=== PATIENT | male | born 1990 | race Caucasian/White ===

== ENCOUNTER 2025-06-17 02:50 | Observation (INO) | payer SELFPAY ==
[2025-06-17 03:11] VITALS: BP 116/53; PULSE 79; RESP 20; TEMP 36.7; O2SAT 97; BMI 29.8
--- NOTE | 2025-06-17 07:08 | ED.WOUNDLAC ---
HPI - Wound/Laceration General Chief Complaint: Wound/Laceration Stated Complaint: R Hand Thumb Laceration Time Seen by Provider: 06/17/25 04:33 Source: patient, RN notes reviewed and old records reviewed Mode of arrival: Ambulatory Limitations: no limitations History of Present Illness HPI narrative: 34-year-old male no reported medical issues presents with complaint of laceration to the posterior or dorsal side of his right thumb. Patient states he can flex it he can extend but not quite fully. He has a minimal pain. He states it has happened last night. Patient states he was speech cocking a turkey. When the knife accidentally slipped and cut him. He did go ahead and bright in the turkey but states he did not use his injured hand. He states no daily medications, denies any prior surgeries or injuries to that hand. No known drug allergies. Former smoker, occasional alcohol, denies any IV drugs. Patient does not believe his tetanus is up-to-date. Related Data Home Medications ?Medication ?Instructions ?Recorded ?Confirmed No Known Home Medications 05/27/25 05/27/25 Allergies Allergy/AdvReac Type Severity Reaction Status Date / Time No Known Drug Allergies Allergy Verified 06/17/25 03:11 Review of Systems Review of Systems ROS Unobtainable: All systems reviewed & are unremarkable except as noted in HPI and below Patient History Social History Smoking Status: Former smoker alcohol intake: current Smoking Status: Former smoker tobacco type: cigarettes and vaping Alcohol type: hard liquor Exam Narrative Exam Narrative: GENERAL: Alert and oriented x three, male in mild distress HEENT: Head normocephalic, atraumatic, EOMI, pupils reactive, face symmetric, moist mucous membranes NECK: Supple, full range of motion CARDIOVASCULAR: Regular rate and rhythm without murmurs, rubs or gallops. RESPIRATORY: Breath sounds equal bilaterally, no wheezes rales or rhonchi. ABDOMEN: Soft, nontender. Normoactive bowel sounds all 4 quadrants. No guarding or rebound, rigidity, no mass EXTREMITIES: 34-year-old male with a 1.5 cm and half laceration over the dorsum of his right thumb, laceration is through and through, tendon is visualized appears to be lacerated all the way through. Do not appear to have any other bony injury. There was no active bleeding, no clubbing or edema. Neurovascularly intact. Patient has a 2+ radial pulse. Cap refills less than 2 seconds patient has sensation intact. NEUROLOGICAL: Cranial nerves II through XII grossly intact. Moving all extremities SKIN: Warm, dry, no petechiae, no rashes or lesions. Initial Vital Signs Initial Vital Signs: Vital Signs Temperature 98.0 F 06/17/25 03:11 Pulse Rate 79 06/17/25 03:11 Respiratory Rate 20 06/17/25 03:11 Blood Pressure 116/53 L 06/17/25 03:11 Pulse Oximetry 97 06/17/25 03:11 Oxygen Delivery Method Room Air 06/17/25 03:11 Course Orders Ordered: Acetaminophen (Acetaminophen 325 Mg Tablet) 975 mg PO NOW ONE Stop: 06/19/25 06:01 Sodium Chloride (Normal Saline 0.9%) 1,000 mls @ 100 mls/hr IV CONT CONNIE Last Infusion: 06/17/25 14:21 Dose: Infused Documented By: Admin: 06/17/25 09:42 Dose: 100 mls/hr Documented By: JEFF Lactated Ringer's (Lactated Ringers) 1,000 mls @ 42 mls/hr IV CONT CONNIE Discontinued Medications Diphtheria/Tetanus/Acell Pertussis (Tet,Diph,Pertuss(Acell),Vac/Pf 0.5 Ml Syringe) 0.5 ml IM .ONCE ONE Stop: 06/17/25 08:06 Last Admin: 06/17/25 08:08 Dose: 0.5 ml Documented By: JEFF(2) Cefazolin Sodium/Dextrose (Ancef) 100 mls @ 200 mls/hr IV NOW ONE Stop: 06/17/25 09:06 Last Infusion: 06/17/25 10:15 Dose: Infused Documented By: Admin: 06/17/25 09:41 Dose: 200 mls/hr Documented By: JEFF Lidocaine HCl (Lidocaine 2% Inj Sdv 5ml) 5 ml INJ INTRA-OP ONE Stop: 06/17/25 07:54 Last Admin: 06/17/25 08:07 Dose: 5 ml Documented By: JEFF(2) Vital Signs Vital signs: Vital Signs - 8 hr 06/17/25 15:46 06/17/25 16:32 Temperature 97.1 F L Pulse Rate 77 69 Respiratory Rate 18 16 Blood Pressure 138/92 H 118/74 Pulse Oximetry 96 97 Oxygen Delivery Method Room Air Room Air MDM - Wound/Laceration MDM Narrative Medical decision making narrative: 34-year-old male with laceration to the dorsum of the right thumb appears that he did lacerate extensor tendon. I spoke with Dr. Villafuerte, orthopedic surgery who will come and evaluate the patient. Dr. Villafuerte, orthopedic surgery: Plan for OR. Patient had tony willingham shortly prior to evaluation in OR. NPO. Discharge Plan Departure Patient Disposition: Admitted to Surgery Clinical Impression: Laceration of extensor tendon of right thumb at hand level Prescriptions: No Action No Known Home Medications
[2025-06-17] MEDS: LIDOCAINE 2% INJ SDV 5ML 5 ML INJ (08:07)
[2025-06-17] MEDS: TET,DIPH,PERTUSS(ACELL),VAC/PF 0.5 ML SYRINGE IM (08:08)
--- NOTE | 2025-06-17 09:07 | PM.CN.IH.1 ---
History of Present Illness Consult details Date Patient Seen: 06/17/25 Time Patient Seen: 09:07 Chief complaint: R Hand Thumb Laceration Reason for consult: Right thumb laceration with tendon involvement Requesting provider: Sherley Maguire Narrative: Agusto is a 34-year-old right-hand dominant male who presents to the emergency room earlier today after he sustained a laceration to his right thumb last evening while preparing a turkey. He had a knife in his hand and slipped, cutting his dorsal right thumb over the proximal phalanx. He is having some difficulty with fully extending the thumb. He has no other complaints. He has no significant past medical history. He works for the [employer]. Meds Home Medications and Allergies Home Medications ?Medication ?Instructions ?Recorded ?Confirmed ?Type No Known Home Medications 05/27/25 05/27/25 History Allergies Allergy/AdvReac Type Severity Reaction Status Date / Time No Known Drug Allergies Allergy Verified 06/17/25 03:11 Exam Vital Signs (past 8 hours): - 06/17/25 03:11 Temperature 98.0 F Pulse Rate 79 Respiratory Rate 20 Blood Pressure 116/53 L Pulse Oximetry 97 Oxygen Delivery Method Room Air Oxygen Delivery Method Room Air Narrative Exam Narrative: Right hand demonstrates a 1.5 cm laceration over the dorsum of the thumb proximal phalanx in an oblique direction. The extensor tendon is visualized within the wound and shows a near complete to complete clean laceration through the tendon. He has intact flexion of the thumb. Distal sensation is intact throughout. Capillary refill is less than 2 seconds. PFSH Tobacco & Substance Use Smoking Status: Former smoker alcohol intake: current Assessment & Plan Assessment & Plan narrative: Right thumb laceration with extensor tendon involvement. Diagnosis and treatment options were discussed with the patient. Given the extent of the injury to the extensor tendon, primary repair is recommended. To best assess the extent of the laceration as well as adequately exposed of the tendon for repair, I feel that this would be best done in the operating room. Benefits of surgery were discussed today. These include optimize christian of normal thumb function. Risks of surgery were also discussed. These included, but were not limited to: Bleeding, infection, drug reactions, neurovascular injury, incomplete pain relief, stiffness, and . Patient voiced understanding and acceptance of the risks. Patient had some sips of and iced coffee from [employer], therefore we will need to wait 8 hours to allow gastric emptying before proceeding with surgery. Patient was informed of this he does understanding. We will proceed to the operating room this afternoon once cleared. Time-Based Coding :: [TOTAL MINUTES] spent with patient and on the chart (including review of chart, obtaining history, exam, reviewing outside data, placing orders, documenting exam and treatment plan, and counseling patient) on [DATE]. PROFEE Charge Codes Inpatient or Observation consultation: [id number]
[2025-06-17] MEDS: SODIUM CHLORIDE 0.9% 1,000 ML 100 ML IV (09:42)
--- NOTE | 2025-06-17 10:04 | PC.NURSE ---
Pt able to bend right thumb but his movment is decreased.
[2025-06-17 15:46] VITALS: BP 138/92; PULSE 77; RESP 18; O2SAT 96
[2025-06-17 16:32] VITALS: BP 118/74; PULSE 69; RESP 16; TEMP 36.2; O2SAT 97
[2025-06-17] MEDS: LACTATED RINGERS 1,000 ML 42 ML IV ×2 (16:38→17:02)
--- NOTE | 2025-06-17 19:05 | SUR.OPER ---
Supine on padded OR bed, head on pillow, arms secured on padded arm boards at <90 degrees abduction, legs uncrossed, safety belt at thigh, tape over blanket over lower legs. right arm on arm table, prepped into field
[2025-06-17 19:56] VITALS: BP 141/69; PULSE 79; RESP 16; TEMP 36.9; O2SAT 98
--- NOTE | 2025-06-17 20:00 | PM.OP.1 ---
Operative Date/Time/Diagnoses Date of procedure: 06/17/25 Time of procedure: 20:00 Pre-op diagnosis: Right thumb extensor tendon laceration Post-op diagnosis: same Procedure & Clinicians Procedure: Right thumb wound exploration with primary repair of extensor pollicis longus (CPT - 00568) and primary closure of laceration. Same procedure(s) as scheduled: Yes Indications: Acute laceration to right thumb extensor pollicis longus Surgeon: Nehemias Villafuerte Assisted?: No Anesthesia Type: General Operative Notes Findings: Complete laceration of extensor pollicis longus in zone 2 Closure Type: primary Specimen(s): none sent Applied: other (Thumb spica splint) Estimated Blood Loss (mL): 1 Blood products transfused: none Tourniquet time (min): 38 Procedure in detail: Patient was diagnosed with acute laceration of the right thumb with involvement of the extensor tendon. Management options were discussed and it was recommended that we proceed to the operating room for formal exploration with primary repair of the extensor tendon and closure. He agreed with this plan. Patient was taken to the holding area and the surgical site was marked. Consent was obtained. He was then taken to the operating room and placed on the operating table in supine position. General anesthesia was induced and the airway was secured with a laryngeal mask airway. A nonsterile tourniquet was placed around the proximal right arm. The right arm was then prepped out with Betadine scrub and paint and draped out in usual sterile fashion. An elastic bandage was used to exsanguinate the arm and the tourniquet was inflated to 200 mm Hg. The wound over the dorsal aspect of the thumb was then inspected and the extensor pollicis longus tendon was found to be completely transected in an oblique fashion with retraction of the proximal end. The laceration was then extended along the radial dorsal aspect of the thumb to create a flap and allow for retrieval of the proximal tendon. The tendon was then identified and mobilized. The wound was irrigated. The tendon ends were then approximated and repaired 1st by using a 4-0 FiberWire running stitch and then reinforced with an epitendinous repair using a 4-0 Prolene suture in a Silfverskiold suture pattern. This provided good approximation of the tendon and stable fixation of the repair. The wound was again irrigated and then the surrounding skin was anesthetized with 0.25% Marcaine without epinephrine. The skin was then closed with 3-0 nylon sutures. There was also a small laceration noticed on the volar aspect of the thumb that had a small full-thickness component that was also reapproximated with a single 3-0 nylon suture. The wounds were then dressed with Xeroform, gauze sponges, and a plaster thumb spica splint applied. The tourniquet was deflated at 38 minutes. General anesthesia was reversed successfully without complication the patient was taken to the recovery room in stable condition. Complications: none Post-operative Condition: stable Disposition: same day surgery Plan for aftercare: Patient will be discharged home tonight with a combination Tylenol and naproxen for pain control. I would like him to follow up with the orthopedic clinic in 7-10 days. A note was also provided today for work keeping him light duty with no use of the right hand for lifting, pushing, pulling, or gripping.
[2025-06-17] MEDS: ONDANSETRON 4 MG/2 ML INJ IV (20:06)
[2025-06-17 20:10] VITALS: BP 129/64; PULSE 70; RESP 16; O2SAT 98
[2025-06-17 20:34] VITALS: BP 136/72; PULSE 68; RESP 26; O2SAT 98
== END 2025-06-17 20:36 | disposition home or self-care (01) ==
LOC: ED 09:52 → AC 16:53
PROVIDERS: Orthopaedic Surgery; Admitting Provider Surgery; Emergency Provider Emergency Medicine; Referring Provider Emergency Medicine; Visit Provider Surgery
PROC: (CPT 26410; principal; 2025-06-17 16:30)
DX: S66.221A Laceration of extensor muscle, fascia and tendon of right thumb at wrist and hand level, initial encounter (principal); W26.0XXA Contact with knife, initial encounter; Z23 Encounter for immunization
CPT/HCPCS: 26410; 90471; 96365; 99284; G0378; 90715; J0689; J1100; J2405; J2704; J3010; J7030; J7120